=== PATIENT | female | born 1950 | race Caucasian/White ===

== ENCOUNTER → 2020-03-02 | Outpatient (CLI) | payer MEDICARE ==
[~2020-03-02] MED LIST: ALBIPROI INH; ALBU90OI INH; AZIT250 PO; Albuterol2.5 MG/0.5 INH; DOXY100; DULERA 100 MCG/13 GM INH; HYDACE5 PO; IBUP600 PO; LEVSOD50 PO; LISI5 PO; PRED10 PO; PRED20 PO
== END ==
LOC: LAB 13:36 → LAB SHORT 13:36
DX: R21 Rash and other nonspecific skin eruption (principal); B02.9 Zoster without complications; L21.8 Other seborrheic dermatitis; L40.0 Psoriasis vulgaris
CPT/HCPCS: 87529; 87798

== ENCOUNTER 2020-05-13 11:11 | Inpatient (IN) | payer MEDICARE ==
[~2020-05-13] VITALS: Ht 152.4 cm; Wt 95.0 kg
[2020-05-13 12:29] LABS: BASOPHILS ABSOLUTE AUTO 0.06 K/mm3 (0.00-0.23); BASOPHILS PERCENT AUTO 1 % (0-2); EOSINOPHILS PERCENT AUTO 2 % (0-6); Hematocrit 45.4 % (33.0-51.0); IMMATURE GRAN ABSOLUTE AUTO 0.04 K/mm3 (0.00-0.10); IMMATURE GRAN PERCENT AUTO 0 % (0-1); LYMPHOCYTES ABSOLUTE AUTO 2.03 K/mm3 (0.84-5.20); LYMPHOCYTES PERCENT AUTO 22 % (21-46); MONOCYTES ABSOLUTE AUTO 0.68 K/mm3 (0.16-1.47); MONOCYTES PERCENT AUTO 7 % (4-13); Mean Corpuscular HGB 31.4 pg (26.0-34.0); Mean Corpuscular Volume 95 fL (80-100); Mean Platelet Volume 9.5 fL (9.1-12.4); NEUTROPHILS ABSOLUTE AUTO 6.26 K/mm3 (1.96-9.15); NEUTROPHILS PERCENT AUTO 68 % (41-73); Platelet Count 328 K/mm3 (150-400); RDW Coefficient Variation 12.7 % (11.7-14.2); RDW Standard Deviation 45.1 fL (35.1-46.3); Red Blood Cell Count 4.77 M/mm3 (3.80-5.20); White Blood Cell Count 9.27 K/mm3 (4.00-11.30)
[2020-05-13 12:52] LABS: Alanine Aminotransfer (ALT/SGP 27 U/L (12-78); Albumin, Blood 4.1 g/dL (3.4-5.0); Albumin/Globulin Ratio 1.2 (0.8-1.8); Alk Phos 99 U/L (50-136); Anion Gap 7 mmol/L (6-16); Aspartate Aminotrans (AST/SGOT 14 U/L (12-37); Bilirubin, Total 0.9 mg/dL (0.1-1.0); Blood Urea Nitrogen 15 mg/dL (8-24); Bun/Creatinine Ratio 25.2 (12.0-20.0); CO2, Blood 29 mmol/L (21-32); Calcium, Blood 9.6 mg/dL (8.5-10.1); Chloride, Blood 109 mmol/L (98-108); Globulin, Blood 3.3 g/dL (2.2-4.0); Glomerular Filtration Rate >60 (60-); Glucose, Blood 127 mg/dL (70-99); Potassium, Blood 3.8 mmol/L (3.5-5.5); Sodium, Blood 145 mmol/L (136-145); Total Protein, Blood 7.4 g/dL (6.4-8.2); Troponin I <0.015 ng/mL (0.000-0.040)
[2020-05-13] MEDS ORDERED: GABA100 PO (13:33)
[2020-05-13] MEDS ORDERED: Ventolin/Prove6.7 GM INH (13:34)
[2020-05-13 15:08] LABS: PCO2 Arterial 42.5 mmHg (35-45); PO2 Arterial 66.8 mmHg (80-100); pH Blood Arterial 7.39 (7.35-7.45)
--- NOTE | 2020-05-13 15:35 | NUR ---
pt arrived to pcu room 6 via gurney from ED, she is able to stand and transfer independently, a/ox3, pleasant and cooperative with care, follows commands well, denies pain, states her breathing is much better than it was before coming in, lungs have insp/exp wheeze t/o, resp even and unlabored, no cough noted, but she reports a productive cough of white sputum, she is currently on 2 liters o2, she is home o2 dependent on 2 liters at hs, hrr, tele in place running sr per monitor, see strip, no edema noted, ppp+2, cap refill <3sec, v.s. stable, afebrile, iv site is clear and patent, btx4, abd flat soft nontender, voids without diff, skin c/w/d, except a thumb size pink area to back of left thigh, she states is where she breaks out in shingles, not open, or scabbed, just pink, maew, able to ambulate indep. using a walker, leno, call light in reach.
--- NOTE | 2020-05-13 17:47 | NUR ---
pt doing ok, ambulating to the br, just needs lines managed. no acute changes this shift, call light in reach.
--- NOTE | 2020-05-13 17:50 | NUR ---
was informed that pt is insistant that she will get up and take herself to the br without calling staff, this nurse instructed her to call just so we can help her with her lines as she isn't used to having them, she refuses a bsc, and is insistant that she and her spouce will not comply with visiting hrs. charge nurse notified.
--- NOTE | 2020-05-13 18:06 | NUR ---
THIS PERSONNEL ASSISTANT WAS ALERTED BY RT THAT PT WAS GETTING UP AND RUSHING TO BATHROOM W/O ASSISTANCE. TOLD PT THAT PRECAUTIONS ARE FOR THE PURPOSE OF PROTECTING LINES, PREVENTING FALLS AND THAT STAFF SHOULD BE CALLED FOR GETTING OUT OF BED. PT STATED SHE WOULDNT WAIT OR CALL AND SAID SHE WILL NOT FALL. OFFERED BEDSIDE COMODE THAT PT COULD USE IND PER RN. PT REFUSED. BED ALARM IN PLACE FOR SAFETY.
--- NOTE | 2020-05-13 19:15 | NUR ---
ASSUMED CARE OF PT, REPORT RECEIVED FROM CEFERINO LOUISE. PT SITTING UP AT SIDE OF BED, MILD DYSPNEA OBSERVED. O2 ON AT 3LPM VIA NC, PT STATES SHE IS NOT IN ANY ACUTE DISTRESS. WILL CONTINUE TO MONITOR
[2020-05-14 04:13] LABS: Hematocrit 43.2 % (33.0-51.0); Hemoglobin 14.4 g/dL (11.5-16.0); Mean Corpuscular HGB 31.4 pg (26.0-34.0); Mean Corpuscular HGB Conc 33.3 g/dL (31.5-36.5); Mean Corpuscular Volume 94 fL (80-100); Mean Platelet Volume 9.6 fL (9.1-12.4); Platelet Count 335 K/mm3 (150-400); RDW Coefficient Variation 12.7 % (11.7-14.2); RDW Standard Deviation 43.8 fL (35.1-46.3); Red Blood Cell Count 4.59 M/mm3 (3.80-5.20); White Blood Cell Count 11.27 K/mm3 (4.00-11.30)
[2020-05-14 04:37] LABS: Anion Gap 6 mmol/L (6-16); Blood Urea Nitrogen 19 mg/dL (8-24); Bun/Creatinine Ratio 34.4 (12.0-20.0); CO2, Blood 25 mmol/L (21-32); Calcium, Blood 9.5 mg/dL (8.5-10.1); Chloride, Blood 109 mmol/L (98-108); Creatinine, Blood 0.55 mg/dL (0.40-1.00); Glomerular Filtration Rate >60 (60-); Glucose, Blood 191 mg/dL (70-99); Potassium, Blood 4.3 mmol/L (3.5-5.5); Sodium, Blood 140 mmol/L (136-145)
--- NOTE | 2020-05-14 17:05 | NUR ---
SHIFT SUMMARY. TRANSFER FROM PCU TO MEDICAL FLOOR THIS SHIFT. PT DENIES N/V AND PAIN. PT REPORTS SOB WITH EXERTION. CONTINUES WITH 3L O2 NC. NO NEW CHANGES OR CONCERNS.
--- NOTE | 2020-05-14 17:58 | NUR ---
PT WITH CBG OF 230, REFUSING INSULIN AT THIS TIME. SAYS IT MAKES HER SICK AND SHE DOES NOT NEED IT. ATTEMPTED TO EDUCATE PATIENT, SHE CONTINUES TO REFUSE HER INSULIN, ALSO REFUSING HER PO PROTONIX, SAYS SHE DOES NOT NEED IT. WILL CONTINUE TO MONITOR
--- NOTE | 2020-05-14 21:42 | NUR ---
PT REFUSED INSULIN P HAD HS BLOOD GLUCOSE OF 268 BUT IS STATING THAT "SHE WILL NOT TAKE ANY INSULIN BECAUSE SHE IS NOT DIABETIC AND THE INSULIN MAKES HER SICK". WCTM.
--- NOTE | 2020-05-15 05:43 | NUR ---
LOGISTICS AND PLANNING MANAGER SUMMARY PT HAD AN UNEVENTFUL NIGHT BUT CONTINUED TO HAVE CONTINUOUS COUGH, TREATED PER EMAR. PT HAS BEEN PLEASANT AND COOPERATIVE W CARE. TM.
--- NOTE | 2020-05-15 14:38 | NUR ---
THIS RN EDUCATED PATIENT ON IMPORTANCE OF INSULIN FOR DM MANAGEMENT WHILE ON STEROIDS AND ACUTELY ILL. BG 289 THIS MORNING. PATIENT ALLOWED INSULIN TO BE ADMINISTERED THIS MORNING. ASKED FOR REGULAR PEPSI THIS AFTERNOON. THIS RN STRONGLY ENCOURAGED DIET SODA, PATIENT DECLINED ALL OTHER BEVERAGE OPTIONS. NO PEPSI GIVEN. AFTERNOON MEAL, PT NOTIFIED BY THIS RN OF BG 216, AND INSULIN RECOMMENDED PER SLIDING SCALE. PT DECLINED. STATED THAT SHE WOULDN'T EAT THE FRUIT OR PUDDING. DIET DESSERT OPTIONS OFFERED. PT DECLINED.
--- NOTE | 2020-05-16 00:51 | NUR ---
05/15/202049 PT BECAME ANGRY WITH RN DURING MEDICATION QUESTIONS. DAY SHIFT RN STATED PT WILL REFUSE MEDS AT TIMES. TOLD RN TO "GET OUT!" UNABLE TO DO ASSESSMENT. RN SPOKE WITH ASSESSORNURIA. ASSESSOR WILL SPEAK WITH PT LATER. SEE MAR.
--- NOTE | 2020-05-16 04:28 | NUR ---
PT REFUSED MORNING VITALS. NURSE NOTIFIED OF REFUSAL.
--- NOTE | 2020-05-16 05:15 | NUR ---
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 RN ATTEMPTED TO DO ASSESSMENT BUT PT COVERED HEAD WITH SHEET AND WOULD NOT LET RN ASSESS WHEN CALLING HER NAME.
[2020-05-16] MEDS ORDERED: GUAI600T33 PO (11:59)
[2020-05-16] MEDS ORDERED: Prinivil10 MG PO (12:01)
[2020-05-16] MEDS ORDERED: NICO21TP TOP (12:01)
[2020-05-16] MEDS ORDERED: PANT20 PO (12:02)
[2020-05-16] MEDS ORDERED: Prednisone10 MG PO (12:04)
[2020-05-16] MEDS ORDERED: COMBIVENT RESPIM4 G1 INH (12:43)
[2020-05-16] MEDS ORDERED: IPRAT-ALBUT 0.5-3 ML INH (16:44)
--- NOTE | 2020-05-16 16:58 | NUR ---
DISCHARGE SUMMARY SOLITARIO VERY EMOTIONAL AND UPSET ABOUT HER DISCHARGE MEDS GOING TO [facility] INSTEAD OF HER MAIL IN PHARMACY. EDUCATED ON THE FACT THAT A COUPLE OF HER MEDS ARE VERY IMPORTANT TO GET TO HER TODAY, AND THAT SHE CAN'T WAIT FOR HER MAIL ORDER PHARMACY TO MAIL THEM TO HER. CHARGE NURSE IN, FOUND HER A COUPON TO GET THE MEDS CHEAPER AT [facility]. AT . PIV OUT, PAPERWORK REVIEWED. INFORMED PT OF PCP APPT THAT WAS SET UP FOR HER, BUT SHE IS DECLINING, STATES SHE ONLY WANTS TO F/U WITH DR GRACE, SHE WILL MAKE HER OWN APPT TOMORROW SHE STATES. AWAITING TO COME AND PICK HER UP
== END 2020-05-16 19:08 | disposition home or self-care (01) | DRG 189 ==
LOC: ER 11:11 → MEDS 11:12 → PCU 11:12 → MEDS 05-14 11:41
PROVIDERS: Emergency Medicine; Nurse Practitioner Acute Care; ADMIT Internal Medicine
DX: J96.21 Acute and chronic respiratory failure with hypoxia (principal); J44.1 Chronic obstructive pulmonary disease with (acute) exacerbation; Z68.41 Body mass index [BMI] 40.0-44.9, adult; E11.9 Type 2 diabetes mellitus without complications; I11.0 Hypertensive heart disease with heart failure; I50.9 Heart failure, unspecified; L40.9 Psoriasis, unspecified; M19.90 Unspecified osteoarthritis, unspecified site; E66.01 Morbid (severe) obesity due to excess calories; F17.210 Nicotine dependence, cigarettes, uncomplicated
CPT/HCPCS: 36415; 36600; 71045; 80048; 80053; 82803; 82947; 83880; 84484; 85025; 85027; 93005; 93010; 94010; 94640; 94645; 94664; 94667; 94760; 94761; 96365; 96366; 96375; 98960; 99285-25; 99406; A9270; A9270-GY; C9113; J1650; J2060; J2930; J3475; J7030; J7512; U0004

== ENCOUNTER 2022-12-05 05:53 | Inpatient (IN) | payer MEDICARE ==
[2022-12-05] VITALS (17 sets, daily range): BP systolic 94–181; BP diastolic 59–120
[~2022-12-05] VITALS: Ht 152.4 cm; Wt 105.9 kg
[~2022-12-05 05:53] MED LIST changes: +COMBIVENT RESPIM4 G1 INH; +GABA100 PO; +GUAI600T33 PO; +IPRAT-ALBUT 0.5-3 ML INH; +NICO21TP TOP; +PANT20 PO; +Prednisone10 MG PO; +Prinivil10 MG PO; +Ventolin/Prove6.7 GM INH
[2022-12-05 06:19] LABS: Bicarbonate Venous 25.7 mmol/L (24.0-30.0); PCO2 Venous 43.9 mmHg (38-42)
[2022-12-05 06:27] LABS: BASOPHILS ABSOLUTE AUTO 0.04 K/mm3 (0.00-0.23); BASOPHILS PERCENT AUTO 0 % (0-2); EOSINOPHILS ABSOLUTE AUTO 0.01 K/mm3 (0.00-0.68); EOSINOPHILS PERCENT AUTO 0 % (0-6); Hematocrit 45.2 % (33.0-51.0); Hemoglobin 15.3 g/dL (11.5-16.0); IMMATURE GRAN ABSOLUTE AUTO 0.09 K/mm3 (0.00-0.10); IMMATURE GRAN PERCENT AUTO 1 % (0-1); LYMPHOCYTES ABSOLUTE AUTO 1.92 K/mm3 (0.84-5.20); LYMPHOCYTES PERCENT AUTO 15 % (21-46); MONOCYTES ABSOLUTE AUTO 0.93 K/mm3 (0.16-1.47); MONOCYTES PERCENT AUTO 7 % (4-13); Mean Corpuscular HGB 31.9 pg (26.0-34.0); Mean Corpuscular HGB Conc 33.8 g/dL (31.5-36.5); Mean Corpuscular Volume 94 fL (80-100); Mean Platelet Volume 9.6 fL (9.1-12.4); NEUTROPHILS ABSOLUTE AUTO 9.57 K/mm3 (1.96-9.15); NEUTROPHILS PERCENT AUTO 76 % (41-73); Platelet Count 359 K/mm3 (150-400); RDW Coefficient Variation 12.8 % (11.7-14.2); RDW Standard Deviation 44.3 fL (35.1-46.3); White Blood Cell Count 12.56 K/mm3 (4.00-11.30)
[2022-12-05 06:54] LABS: Bun/Creatinine Ratio 42.4 (12.0-20.0); Calcium, Blood 9.3 mg/dL (8.5-10.1); Creatinine, Blood 0.66 mg/dL (0.40-1.00); Magnesium, Blood 2.4 mg/dL (1.6-2.4); Potassium, Blood 4.5 mmol/L (3.5-5.5)
[2022-12-05] MEDS ORDERED: BREZTRI AEROS10.7 GM INH (08:38)
--- NOTE | 2022-12-05 10:29 | NUR ---
ARRIVAL NOTE... PT ARRIVED ON THE UNIT AT 0957. PT IS A&Ox4. SHE IS ON BIPAP AT 12/8 AND 35% L/S INSP AND EXP WHEEZES T/O. RR IN THE HIGH 20'S. O2 SATS >95%. PT BECOMES VERY SOB AND DESATS WITH ACTIVITY PER SHINGLE SAWYER REPORT. SHE IS IN SR IN THE 90'S AND HYPERTENSIVE WITH SBPs IN THE 180'S. NO EDEMA NOTED ON THIS ASSESSMENT. PT IS VERBALLY AGGRESSIVE TOWARDS STAFF. WILL CONTINUE TO MONITOR.
[2022-12-05 12:30] LABS: Base Excess Venous -1.3 mmol/L; Bicarbonate Venous 22.9 mmol/L (24.0-30.0); pH Blood Venous 7.31 (7.34-7.37)
--- NOTE | 2022-12-05 15:08 | NUR ---
Pt. is on her bipap, but is responsive and welcomes my visit. Pt. is unsettled about her arthritis and the need for a good primary care physician. Pt. verbalized that she lives in [place]. Listen with empathy and a calming presence. Pt. displayed some evidence of reduced anxiety, but verbalized that she does not have significant discomfort. Consisdered matters of salvador and belief. Prayed with Pt. Pt. verbalized gratitude for the spiritual care visit and welcomed this grease worker to return.
--- NOTE | 2022-12-05 17:57 | NUR ---
SHIFT SUMMARY.... NO ACUTE NEGATIVE CHANGES NOTED THIS SHIFT. PT CONTINUES ON THE BIPAP AT 12/8 35% WITH O2 SATS >95% L/S CONTINUE TO HAVE INSP AND EXP WHEEZES T/O RR HAS IMPROVED SLIGHTLY DOWN TO THE LOW 20'S SINCE SHE WAS ADMITTED. PT REFUSES TO ALLOW STAFF TO REMOVE HER LOOSE FITTING DENTURES, PT EDUCATED ON THE ASPIRATION/CHOKING RISK, PT STATED "I DON'T GIVE A SHIT!" PUREWICK IN PLACE AND SET TO SUCTION. PT HAS BEEN REFUSING TURNS BY STAFF, PT DOES WRIGGLE AND TWITCH FREQUENTLY IN THE BED. PT BECOMES VERY SOB WITH ACTIVITY. PT IS ALSO REFUSING INSULIN ANY INSULIN INJECTIONS FROM NOW ON PER THE PT. SHE WAS EDUCATED ON WHY BLOOD SUGAR CONTROL WAS IMPORTANT AND THE NEGATIVE EFFECTS IT CAN HAVE ON HER HEALTH, PT VERBALIZED HER UNDERSTANDING BY SAYING "I DON'T CARE IT HURTS." CALL LIGHT IN REACH, BED ALARM IS ON WILL CONTINUE TO MONITOR UNTIL REPORT IS GIVEN TO ONCOMING RN.
--- NOTE | 2022-12-05 20:31 | NUR ---
ASSUMED CARE PT IS A&O X4 AND SOMNULENT. SPO2 >92% ON BIPAP 10/6 35%; MAP <65, NSR. NO C/O CP, SOB (MORE THAN USUAL), NAUSEA, DIZZINESS, OR LIGHTHEADEDNESS. PT IS RESTING QUIETLY AND COOPERATIVE W/ CARE AT THIS TIME. EXPIRATORY WHEEZES AUSCULTATED IN ALL LUNG SORIANO (RT HAD GIVEN BREATHING TREATMENT ALREADY). PUREWICK IN PLACE.
[2022-12-06] VITALS (17 sets, daily range): BP systolic 132–193; BP diastolic 63–119
--- NOTE | 2022-12-06 02:50 | NUR ---
UPDATE SPOKE W/ DAUGHTER SUJATA AND GAVE UPDATE ON PT.
[2022-12-06 03:25] LABS: Base Excess Venous 2.4 mmol/L; Bicarbonate Venous 26.5 mmol/L (24.0-30.0); PCO2 Venous 38.1 mmHg (38-42); pH Blood Venous 7.45 (7.34-7.37)
--- NOTE | 2022-12-06 03:25 | NUR ---
UPDATE PT GIVEN BREAK FROM BIPAP AND MOVED TO 4L NC BY RT.
[2022-12-06 03:34] LABS: BASOPHILS ABSOLUTE AUTO 0.02 K/mm3 (0.00-0.23); BASOPHILS PERCENT AUTO 0 % (0-2); EOSINOPHILS PERCENT AUTO 0 % (0-6); Hemoglobin 14.6 g/dL (11.5-16.0); IMMATURE GRAN ABSOLUTE AUTO 0.12 K/mm3 (0.00-0.10); IMMATURE GRAN PERCENT AUTO 1 % (0-1); LYMPHOCYTES PERCENT AUTO 10 % (21-46); MONOCYTES ABSOLUTE AUTO 0.57 K/mm3 (0.16-1.47); MONOCYTES PERCENT AUTO 4 % (4-13); Mean Corpuscular HGB 31.4 pg (26.0-34.0); Mean Corpuscular HGB Conc 33.2 g/dL (31.5-36.5); Mean Corpuscular Volume 95 fL (80-100); Mean Platelet Volume 9.5 fL (9.1-12.4); NEUTROPHILS ABSOLUTE AUTO 11.52 K/mm3 (1.96-9.15); NEUTROPHILS PERCENT AUTO 85 % (41-73); Platelet Count 358 K/mm3 (150-400); RDW Standard Deviation 45.5 fL (35.1-46.3); Red Blood Cell Count 4.65 M/mm3 (3.80-5.20); White Blood Cell Count 13.63 K/mm3 (4.00-11.30)
[2022-12-06 03:58] LABS: Bun/Creatinine Ratio 40.3 (12.0-20.0); Calcium, Blood 9.7 mg/dL (8.5-10.1); Creatinine, Blood 0.6 mg/dL (0.40-1.00); Magnesium, Blood 2.5 mg/dL (1.6-2.4); Potassium, Blood 4.8 mmol/L (3.5-5.5)
--- NOTE | 2022-12-06 05:50 | NUR ---
SHIFT SUMMARY PT IS A&O X4; SPO2 >92% ON 4L NC; MAP <65; SINUS TACHY IN THE 100'S-LOW 110'S (PT OUT OF BED INTO CHAIR RIGHT BEFORE THIS NOTE). NSR FOR MOST OF NIGHT. PT HAD COMPLAINTS OF BILL WHILE WEARING BIPAP. CURRENTLY NO C/O CP OR NAUSEA. INCREASED SOB WHEN GETTING OUT OF BED INTO CHAIR. CURRENTLY SALINE LOCKED. PURE WICK IN PLACE. NO ACUTE EVENTS OVERNIGHT.
--- NOTE | 2022-12-06 07:27 | NUR ---
ASSUMED CARE CARE OF THE PATIENT WAS ASSUMED AT 0700. PT RESTING IN BED. A&O X4, ANSWERING QUESTIONS APPROPRIATELY. PT WILL FOLLOW ANSWERING QUESTIONS WITH MULTIPLE STORIES DISTANTLY RELATED TO THE QUESTIONS ASKED OF HER. PT ON 4 L N/C, O2 SATS >95%. WHEEZES AUSCULTATED T/O LUNG SORIANO. PUREWICK IN PLACE, PT STATES THAT SHE IS INCONTINENT AT HOME. WHEN ASKED AT 0700 IF THE PATIENT IS OKAY WITH HER VISITING, SHE SAID SHE WANTS HIM IN THE ROOM MINIMALLY BECAUSE "HE EATS ALL OF HER FOOD". BP HYPERTENSIVE, NSR NOTED ON THE PROFESSOR OF BIOLOGICAL SCIENCES.
--- NOTE | 2022-12-06 13:41 | NUR ---
SOLITARIO HAS BEEN APPROPRIATE AND AGREEABLE WITH CARE SO FAR TODAY. SHE HAS BEEN UP TO THE BSC WITH ASSISTANCE. SHE HAS SAT ON THE EDGE OF THE BED FOR MEALS. HER HAS NOW ARRIVED AND HER DEMEANOR HAS CHANGED FROM HER EARLIER INTERACTIONS WITH STAFF. SHE IS MORE ILL TEMPERED AND SHORT/ALISA WITH REPLIES.
--- NOTE | 2022-12-06 14:49 | NUR ---
TRANSFER OF CARE REPORT WAS GIVEN TO MARICEL LOUISE IN THE PCU. PATIENT WAS TRANSFERED TO PCU 6 VIA WHEELCHAIR WITH HER AT HER SIDE.
--- NOTE | 2022-12-06 17:50 | NUR ---
assumption of care/shift summary this rn assumed care at approx 1500. patient is alert and oriented x4. perrla. reports no pain, chest pain/pressure. reports shortness of breath with activity. patient transfered from wheelchair to bed indepdently. patient had a shower and did it indepdently. patient is able to make needs known and uses call light. vital signs stable. spo2 >95% on 4l nc. tele sr. plan of care is up to date.
[2022-12-07 00:15] VITALS: BP 165/58
[2022-12-07 05:41] VITALS: BP 152/63
--- NOTE | 2022-12-07 05:48 | NUR ---
END OF SHIFT: ONLY EVENT THROUGH THE NIGHT WAS INCREASED BLOOD PRESSURE PRN ENALAPRIL GIVEN AND STEADY DECREASE TO BLOOD PRESSURE IS OBSERVED. PATIENT WAS ASYMPTOMATIC AND SLEEPING, MULTIPLE RECKs BEFORE PRN GIVEN. DENIES CHEST PAIN PRESSURE OR SOB, WILL CONTINUE TO MONITOR, DID NOT TOLERATE THE BIPAP FOR LONGER THAN 1.5 HOURS, PATIENT HAS BEEN SBA AND SOMETIMES INDEPENDENT TO THE BATHROOM SHE REFUSES TO CALL MUCH EDUCATION WAS GIVEN, STILL DOESNT CALL. PATIENT HAS NOT CONCERNS BESIDES DISCHARGE, WILL CONTINUE TO MONITOR UNTIL SHIFT CHANGE
[2022-12-07 07:29] VITALS: BP 165/59
[2022-12-07 16:28] VITALS: BP 142/106
--- NOTE | 2022-12-07 17:14 | NUR ---
SHIFT SUMMARY PT REMAINS ALERT AND ORIENTED. BP STABLE. HR WAS NSR 70'S, BUT TELEMETRY HAS BEEN DISCONTINUED. PT TITRATED DOWN TO 2L NC WITH SATS >90%. PT SOB WITH MINIMAL ACTIVITY, BUT RECOVERS WITHIN MINUTES. PT COMPLAINED OF PERSISTANT COUGH AND COUGH SYRUP PROVIDED ORDERED. PT ABLE TO AMBULATE TO BATHROOM TO VOID NEEDED. SKIN C/D/I. PT COMPLAINED OF BILL THAT WAS RELEIVED WITH TYLENOL ADMINISTRATION. SPOUSE AT BEDSIDE. WILL CONTINUE TO MONITOR AND REPORT TO ONCOMING RN
[2022-12-07 21:48] VITALS: BP 123/87
--- NOTE | 2022-12-08 03:43 | NUR ---
SHIFT SUMMEY, PT ARRIVED TO FLOOR AND TRANSFRED FROM WC TO BED. LATER PT UP TO BR WITH SBA, BUT STEDY ON FEET. PT MEDICATED FOR A BILL AND THEN LATTER FELL ASLEEP. PT SEEMED TO HAVE SOME DIFFICULTY FALLING A SLEEP FOR A WHILE. PT NOW SEEMS TO BE RESTING WELL. RESPERATIONDS EVEN AND UNLABORED. CALL LIGHT IN REACH.
[2022-12-08 04:48] LABS: Hematocrit 45.6 % (33.0-51.0); Hemoglobin 15.1 g/dL (11.5-16.0); Mean Corpuscular HGB 31.3 pg (26.0-34.0); Mean Corpuscular HGB Conc 33.1 g/dL (31.5-36.5); Mean Corpuscular Volume 94 fL (80-100); Mean Platelet Volume 9.4 fL (9.1-12.4); Platelet Count 376 K/mm3 (150-400); RDW Coefficient Variation 12.5 % (11.7-14.2); RDW Standard Deviation 43.5 fL (35.1-46.3); Red Blood Cell Count 4.83 M/mm3 (3.80-5.20); White Blood Cell Count 14.09 K/mm3 (4.00-11.30)
[2022-12-08 05:08] VITALS: BP 166/72
[2022-12-08 05:08] LABS: Bun/Creatinine Ratio 48.6 (12.0-20.0); Calcium, Blood 9.3 mg/dL (8.5-10.1); Creatinine, Blood 0.72 mg/dL (0.40-1.00); Potassium, Blood 4.8 mmol/L (3.5-5.5)
[2022-12-08 07:25] VITALS: BP 182/160
[2022-12-08 07:28] VITALS: BP 187/73
--- NOTE | 2022-12-08 10:00 | NUR ---
DR DAVID CAME TO SEE THE PT- PLAN IS TO DC THE PT HOME. PT IS ALERT AND ORIENTED, SHE EXPRESSED HER DESIRE TO GO HOME. O2 IS REDUCED TO PT HOME DOSE AND SATS ARE MAINTAINING WELL. PT AGREES SHE FEELS READY TO GO HOME. PER DR DAVID 1200 DOSE OF IV SOLUMEDROL WILL BE HELD NEW ORDER FOR MEDICATIONS AND BREATHING Tx SENT TO [facility], PT PHARMACY ([id number]) IS CLOSED. CALLED [facility] [place] THEY PROVIDE THE PT WITH HER NEBULIZER AND SUPPLIES, THEY DO NOT DELIVER BREATHING Tx ON THE WEEKEND. UNABLE TO GET THE MEDS THAT WAY.
--- NOTE | 2022-12-08 11:04 | NUR ---
RETURNED FROM BREAK AND COVERING RN STATED THAT THE PT WAS C/O INCREASED SOB. PT WAS LYING FLAT, RN SAT PT UP AND INCREASED HER NC O2 TO 4 L. I CHECKED ON PT PERSONALLY AFTER THIS NOTIFICAION. SHE STATED THAT HER BREATHING HAD IMPROVED, I TITRATED HER O2 BACK DOWN TO 2 L AND MONITORED HER O2 SATURATION. HER O2 PERCENTAGE SUSTAINED AT 95% AND REMAINED ABOVE 90%.
[2022-12-08] MEDS ORDERED: AMLO5 PO (12:32)
[2022-12-08] MEDS ORDERED: ROPI1 PO (12:33)
[2022-12-08] MEDS ORDERED: GUAI600T33 PO (12:33)
[2022-12-08] MEDS ORDERED: Prednisone10 MG PO (12:38)
--- NOTE | 2022-12-08 12:58 | NUR ---
DISCHARGE NOTE- PT WAS GIVEN VERBAL AND WRITTEN DISCHARGE INSTRUCTIONS AND ACKNOWLEDGED UNDERSTANDING OF THEM. PT SPOUSE PRESENT FOR THE DISCHARGE TEACHING. MEDS FAXED TO [facility], CALLED [facility] THEY DO NOT DELIVER BREATHING Tx ON THE WEEKEND. PT IV DC'D BY WOOD CASKET MAKER RAUL. PT IS GETTING READY TO GO CURRENTLY AND WILL BE ESCORTED OUT VIA WC BY THE PROGRAM MANAGER RN.
== END 2022-12-08 13:26 | disposition home or self-care (01) | DRG 189 ==
LOC: ER 05:53 → ICUE 08:20 → ICUW 08:20 → ICUE 09:57 → PCU 12-06 14:40 → MEDS 12-07 21:39
PROVIDERS: Internal Medicine; Student in an Organized Health Care Education/Training Program; ADMIT Internal Medicine
PROC: 5A09357 Assistance with Respiratory Ventilation, Less than 24 Consecutive Hours, Continuous Positive Airway Pressure (ICD-10-PCS; principal; 2022-12-08)
DX: J96.21 Acute and chronic respiratory failure with hypoxia (principal); J44.1 Chronic obstructive pulmonary disease with (acute) exacerbation; J96.02 Acute respiratory failure with hypercapnia; G47.33 Obstructive sleep apnea (adult) (pediatric); E11.9 Type 2 diabetes mellitus without complications; F41.9 Anxiety disorder, unspecified; E03.9 Hypothyroidism, unspecified; I10 Essential (primary) hypertension; D72.829 Elevated white blood cell count, unspecified; L40.9 Psoriasis, unspecified; F17.210 Nicotine dependence, cigarettes, uncomplicated; Z96.661 Presence of right artificial ankle joint; Z90.49 Acquired absence of other specified parts of digestive tract; Z90.89 Acquired absence of other organs; Z98.890 Other specified postprocedural states; Z99.81 Dependence on supplemental oxygen; Z79.51 Long term (current) use of inhaled steroids; Z79.899 Other long term (current) drug therapy; Z79.811 Long term (current) use of aromatase inhibitors; Z96.651 Presence of right artificial knee joint
CPT/HCPCS: 36415; 71045; 80048; 82803; 82947; 83735; 84145; 84439; 84443; 85025; 85027; 93005; 93010; 94640; 94644; 94645; 94660; 94664; 94760; 94762; 96374; 96375; 99285-25; A9270; J0456; J1650; J2060; J2930; J7050

== ENCOUNTER → 2023-02-24 | Outpatient (CLI) | payer MEDICARE ==
[~2023-02-24] MED LIST changes: +AMLO5 PO; +BREZTRI AEROS10.7 GM INH; +ROPI1 PO
[2023-02-28 16:07] LABS: ANABASINE <1 ng/mL (.); COTININE <10 ng/mL (.); NICOTINE <10 ng/mL (.)
== END ==
LOC: LAB 07:22
PROVIDERS: Student in an Organized Health Care Education/Training Program
DX: M17.12 Unilateral primary osteoarthritis, left knee (principal); Z79.899 Other long term (current) drug therapy
CPT/HCPCS: G0480

== ENCOUNTER → 2024-02-10 | Outpatient (CLI) | payer MEDICARE ==
[~2024-02-10] MED LIST changes: +LEVSOD88; +METF500; +ONDA4 PO; +OXYGEN INH; +ROPI1; +TRELEGY ELLIPT1 EACH INH
[2024-02-12 18:03] LABS: COTININE, URN, SCREEN Negative ng/mL (Cutoff 100)
== END ==
LOC: LAB 10:53 → LAB SHORT 10:53
PROVIDERS: Student in an Organized Health Care Education/Training Program
DX: M17.12 Unilateral primary osteoarthritis, left knee (principal)